=== PATIENT | male | born 1980 | race Caucasian/White ===

== ENCOUNTER 2021-10-07 18:36 | Emergency (ER) | payer MEDICAID, OTHER ==
[~2021-10-07] VITALS: Ht 172.7 cm; Wt 70.8 kg
--- NOTE | 2021-10-07 19:10 | NUR ---
BACK OF THE HEAD PAIN, "HEARING LOSS TO L EAR X 8 DAYS. 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 PT A/OX4. TOLERATING R/A WELL WITH NO SOB OR RESP DISTRESS. CONNECTED PT TO POX AND MONITOR. SAFETY MEASURES IN PLACE.
--- NOTE | 2021-10-07 19:46 | NUR ---
DR. LAW YODER AT PT'S BEDSIDE
[2021-10-07] MEDS ORDERED: CARBAMIDE PEROXIDE OTIC 15 ML BOTTLE OT ONE (20:00)
[2021-10-07] MEDS ORDERED: CARBAMIDE PEROXIDE OTIC 15 ML BOTTLE ONE (20:48)
--- NOTE | 2021-10-07 22:00 | NUR ---
pt left in stable condition, ambulated. Discharge paperwork given to pt
[2021-10-07 22:02] VITALS: BP 144/90
== END 2021-10-07 22:03 | disposition home or self-care (01) ==
LOC: ER 18:39
DX: H61.23 Impacted cerumen, bilateral (principal); Z88.6 Allergy status to analgesic agent